=== PATIENT | female | born 1975 | race Native Hawaiian/Other Pacific Islander ===

== ENCOUNTER 2017-01-17 09:51 | Emergency (ER) | payer OTHER ==
[~2017-01-17] VITALS: Ht 162.6 cm; Wt 87.0 kg
[2017-01-17 09:55] VITALS: BP 126/82; PULSE 104; RESP 20; TEMP 98.3; O2SAT 98
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
[2017-01-17] MEDS ORDERED: IBUPROFEN 800 MG TAB PO ONE (11:30)
[2017-01-17] MEDS ORDERED: ROBA500T PO (12:00)
[2017-01-17] MEDS ORDERED: IBUP800T23 PO (12:00)
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
== END 2017-01-17 12:37 | disposition home or self-care (01) ==
LOC: NEPB 09:51
DX: S50.311A Abrasion of right elbow, initial encounter (principal); S00.211A Abrasion of right eyelid and periocular area, initial encounter; R42 Dizziness and giddiness; Z87.09 Personal history of other diseases of the respiratory system; Z86.59 Personal history of other mental and behavioral disorders; Z86.79 Personal history of other diseases of the circulatory system; V89.2XXA Person injured in unspecified motor-vehicle accident, traffic, initial encounter
CPT/HCPCS: 70450; 70486

== ENCOUNTER 2017-12-29 15:32 | Emergency (ER) | payer OTHER ==
[~2017-12-29] VITALS: Ht 162.6 cm; Wt 85.0 kg
[~2017-12-29 15:32] MED LIST: IBUP1TAB7 PO; ROBA500T PO
[2017-12-29 15:35] VITALS: BP 118/78; PULSE 90; RESP 17; TEMP 98.8; O2SAT 100
[2017-12-29] MEDS ORDERED: SODIUM CHLOR 0.9% 1000 ML INJ 1,000 ML IV SCH (17:33)
--- NOTE | 2017-12-29 17:37 | PD ---
HPI Chief Complaint: Dizziness Time Seen by Provider: 17:27 Travel History International Travel<30 days: No Contact w/Intl Traveler<30days: No Traveled to known affect area: No History of Present Illness HPI 42-year-old female here for evaluation of flulike symptoms, dizziness, nausea, and vomiting. The patient reports cough, generalized malaise, body aches, fevers, flulike illness for about a week. Today after eating breakfast she felt dizzy and became nauseous. She forced herself to vomit. She complains that she feels as though her head is heavy. No abdominal pain. She did have urinary symptoms earlier this week with dysuria, however she states this has resolved. PFSH Past Medical History Asthma: Yes Anxiety: Yes Heart Rhythm Problems: Yes (irreg heartbeat) Cardiovascular Problems: Yes (IRREGULAR HEARBEAT) Diminished Hearing: No ?: Not LMP: "2 WEEKS AGO" : 3 Para: 3 Social History Alcohol Use: No Tobacco Use: No Substance Use: No Allergies-Medications (Allergen,Severity, Reaction): Coded Allergies: No Known Allergies (Verified Adverse Reaction, Unknown, 12/29/17) Reported Meds & Prescriptions Reported Meds & Active Scripts Active Ibuprofen 800 Mg Tab 800 Mg PO Q6HR PRN Robaxin (Methocarbamol) 500 Mg Tab 500 Mg PO QID PRN Review of Systems Except as stated in HPI: all other systems reviewed are Neg Physical Exam Narrative GENERAL: Well-developed, well-nourished, comfortable, no apparent distress. SKIN: Focused skin assessment warm/dry. No pallor. HEAD: Atraumatic. Normocephalic. EYES: Pupils equal, round, 3 mm, reactive to light. No scleral icterus. No injection or drainage. ENT: No nasal bleeding or discharge. Mucous membranes pink and moist. Bilateral tympanic members and external auditory canals are normal. NECK: Trachea midline. No JVD. CARDIOVASCULAR: Regular rate and rhythm. RESPIRATORY: No accessory muscle use. Clear to auscultation. Breath sounds equal bilaterally. GASTROINTESTINAL: Abdomen soft, non-tender, nondistended. MUSCULOSKELETAL: No obvious deformities. No clubbing. No cyanosis. No edema. NEUROLOGICAL: Awake and alert. No obvious cranial nerve deficits. Motor grossly within normal limits. Normal speech. PSYCHIATRIC: Appropriate mood and affect; insight and judgment normal. Data Data Last Documented VS Vital Signs Date Time Temp Pulse Resp B/P (MAP) Pulse Ox O2 Delivery O2 Flow Rate FiO2 12/29/17 18:07 98.6 92 20 117/75 (89) 97 Room Air Orders Orders Complete Blood Count With Diff (12/29/17 17:33) Comprehensive Metabolic Panel (12/29/17 17:33) Prothrombin Time / Inr (Pt) (12/29/17 17:33) Act Partial Throm Time (Ptt) (12/29/17 17:33) Urinalysis - C+S If Indicated (12/29/17 17:33) Iv Access Insert/Monitor (12/29/17 17:33) Ecg Monitoring (12/29/17 17:33) Oximetry (12/29/17 17:33) Sodium Chlor 0.9% 1000 Ml Inj (Ns 1000 M (12/29/17 17:33) Sodium Chloride 0.9% Flush (Ns Flush) (12/29/17 17:45) Ed Urine Pregnancytest Poc (12/29/17 17:33) Influenzae A/B Antigen (12/29/17 17:33) Chest, Single Ap (12/29/17 ) Ct Brain W/O Iv Contrast(Rout) (12/29/17 ) Metoclopramide Inj (Reglan Inj) (12/29/17 17:45) Meclizine (Antivert) (12/29/17 19:30) Amoxicil-Clavulanate (Augmentin) (12/29/17 19:30) Labs Laboratory Tests Test 12/29/17 17:50 12/29/17 18:05 Urine Color YELLOW Urine Turbidity CLEAR Urine pH 7.0 Urine Specific [place] 1.026 Urine Protein 30 mg/dL Urine Glucose (UA) NEG mg/dL Urine Ketones 10 mg/dL Urine Occult Blood NEG Urine Nitrite NEG Urine Bilirubin NEG Urine Urobilinogen LESS THAN 2.0 MG/DL Urine Leukocyte Esterase NEG Urine RBC 2 /hpf Urine WBC 1 /hpf Urine Squamous Epithelial Cells 3 /hpf Urine Mucus FEW /lpf Microscopic Urinalysis Comment CULT NOT INDICATED White Blood Count 4.2 TH/MM3 Red Blood Count 4.70 MIL/MM3 Hemoglobin 13.7 GM/DL Hematocrit 40.3 % Mean Corpuscular Volume 85.7 FL Mean Corpuscular Hemoglobin 29.1 PG Mean Corpuscular Hemoglobin Concent 34.0 % Red Cell Distribution Width 13.2 % Platelet Count 201 TH/MM3 Mean Platelet Volume 8.7 FL Neutrophils (%) (Auto) 54.6 % Lymphocytes (%) (Auto) 37.9 % Monocytes (%) (Auto) 6.0 % Eosinophils (%) (Auto) 1.1 % Basophils (%) (Auto) 0.4 % Neutrophils # (Auto) 2.3 TH/MM3 Lymphocytes # (Auto) 1.6 TH/MM3 Monocytes # (Auto) 0.3 TH/MM3 Eosinophils # (Auto) 0.0 TH/MM3 Basophils # (Auto) 0.0 TH/MM3 CBC Comment DIFF FINAL Differential Comment Prothrombin Time 10.0 SEC Prothromb Time International Ratio 1.0 RATIO Activated Partial Thromboplast Time 26.8 SEC Blood Urea Nitrogen 17 MG/DL Creatinine 0.68 MG/DL Random Glucose 116 MG/DL Total Protein 8.3 GM/DL Albumin 3.9 GM/DL Calcium Level 9.3 MG/DL Alkaline Phosphatase 57 U/L Aspartate Amino Transf (AST/SGOT) 17 U/L Alanine Aminotransferase (ALT/SGPT) 24 U/L Total Bilirubin 0.6 MG/DL Sodium Level 136 MEQ/L Potassium Level 3.9 MEQ/L Chloride Level 102 MEQ/L Carbon Dioxide Level 28.6 MEQ/L Anion Gap 5 MEQ/L Estimat Glomerular Filtration Rate 94 ML/MIN MDM Medical Decision Making Medical Screen Exam Complete: Yes Emergency Medical Condition: Yes Differential Diagnosis Influenza, viral illness, URI, sinusitis, intracranial abnormality, vertigo, metabolic abnormality, anemia, UTI Narrative Course Vital signs are within normal limits. CBC is unremarkable. CMP is unremarkable. UA is not suggestive of UTI. Urine is negative. Influenza is negative. Chest x-ray: No acute disease. CT head: No acute intracranial abnormality. Right paranasal sinusitis. Patient was made aware of all findings. She was given a liter normal saline IV and IV Reglan and feels improved. She still feels slightly dizzy. She will be given a dose of meclizine and started on Augmentin for sinusitis. She was advised to follow-up with her primary care physician this week. She was informed on when to return to the emergency department. She verbalizes understanding and agreement with plan. Diagnosis Primary Impression: Sinusitis Qualified Codes: J01.90 - Acute sinusitis, unspecified Additional Impression: Dizziness Referrals: Primary Care Physician 3 days Additional Instructions: Follow-up with your primary care physician this week. Take medications as prescribed. Stay hydrated with plenty of fluids. Return to the emergency department for worsening symptoms or any other concerns. Scripts Amoxicillin-Clavulanate (Augmentin) 875-125 Mg Tab 1 TAB PO BID for Infection for 7 Days, #14 TAB 0 Refills Prov: Sae Harley MD 12/29/17 Meclizine (Meclizine) 25 Mg Tab 25 MG PO TID Y for VERTIGO, #15 TAB 0 Refills Prov: Sae Harley MD 12/29/17 Disposition: 01 DISCHARGE HOME Condition: Stable Sae Harley MD Dec 29, 2017 17:37
[2017-12-29] MEDS ORDERED: METOCLOPRAMIDE HCL 10 MG/2 ML VIAL IV PUSH ONE (17:45)
[2017-12-29] MEDS ORDERED: SODIUM CHLORIDE 0.9% FLUSH 10 ML FLUSH IV FLUSH PRN (17:45)
[2017-12-29 18:07] VITALS: BP 117/75; PULSE 92; RESP 20; TEMP 98.6; O2SAT 97
--- NOTE | 2017-12-29 18:10 | RADRPT ---
EXAM DATE/TIME: 12/29/2017 17:43 [facility] COMPARISON: No previous studies available for comparison. INDICATIONS : Short of breath. MEDICAL HISTORY : None. SURGICAL HISTORY : None. ENCOUNTER: Initial ACUITY: 1 day PAIN SCORE: 0/10 LOCATION: Bilateral chest FINDINGS: Single AP view of the chest. Low lung volumes. The lungs are clear. Cardiomediastinal silhouette with in normal limits. No evidence of pleural effusion or pneumothorax. CONCLUSION: No acute cardiopulmonary disease identified. Aris Rebolledo MD on December 29, 2017 at 18:07 Board Certified Radiologist. This report was verified electronically.
[2017-12-29 18:26] LABS: BILIRUBIN, URINE NEG (NEG); BLOOD, URINE NEG (NEG); GLUCOSE,URINE NEG (NEG); KETONE, URINE 10 mg/dL (NEG); MUCUS URINE FEW /lpf (OCC); NITRITE,URINE NEG (NEG); SQUAMOUS EPITHELIAL CELL URINE 3 /hpf (0-5); URINE COLOR YELLOW (YELLW/STRAW); URINE LEUKOCYTE ESTERASE NEG (NEG)
[2017-12-29 18:41] LABS: AUTOMATED NEUTROPHIL # 2.3 TH/MM3 (1.8-7.7); BASOPHIL % 0.4 % (0.0-2.0); EOSINOPHIL % 1.1 % (0.0-4.0); HEMATOCRIT 40.3 % (35.0-46.0); HEMOGLOBIN 13.7 GM/DL (11.6-15.3); LYMPH % 37.9 % (9.0-44.0); LYMPHOCYTE # 1.6 TH/MM3 (1.0-4.8); MEAN CELL VOLUME 85.7 FL (80.0-100.0); MEAN CORPUSCULAR HEMOGLOBIN 29.1 PG (27.0-34.0); MEAN PLATELET VOLUME 8.7 FL (7.0-11.0); MONOCYTE # 0.3 TH/MM3 (0-0.9); NEUT % 54.6 % (16.0-70.0); PLATELET COUNT 201 TH/MM3 (150-450); RED CELL DISTRIBUTION WIDTH 13.2 % (11.6-17.2); WHITE BLOOD COUNT 4.2 TH/MM3 (4.0-11.0)
[2017-12-29 18:46] LABS: ALBUMIN 3.9 GM/DL (3.4-5.0); AST (GOT) 17 U/L (15-37); BICARBONATE 28.6 MEQ/L (21.0-32.0); BLOOD UREA NITROGEN 17 MG/DL (7-18); CALCIUM 9.3 MG/DL (8.5-10.1); CHLORIDE 102 MEQ/L (98-107); CREATININE 0.68 MG/DL (0.50-1.00); GLOMERULAR FILTRATION RATE 94 ML/MIN (>89); GLUCOSE,RANDOM 116 MG/DL (74-106); SODIUM (NA) 136 MEQ/L (136-145)
[2017-12-29 18:47] LABS: ALT (GPT) 24 U/L (10-53)
[2017-12-29 18:49] LABS: ALKALINE PHOSPHATASE 57 U/L (45-117); TOTAL BILIRUBIN ADULT 0.6 MG/DL (0.2-1.0); TOTAL PROTEIN 8.3 GM/DL (6.4-8.2)
--- NOTE | 2017-12-29 19:12 | RADRPT ---
EXAM DATE/TIME: 12/29/2017 18:50 [facility] COMPARISON: CT FACIAL BONES W/O CONTRAST, January 17, 2017, 11:54. CT BRAIN W/O CONTRAST, January 17, 2017, 11 :54. INDICATIONS : Dizziness today. RADIATION DOSE: 56.35 CTDIvol (mGy) MEDICAL HISTORY : Cardiovascular disease. SURGICAL HISTORY : None. ENCOUNTER: Initial ACUITY: 1 day PAIN SCALE: 0/10 LOCATION: Bilateral head TECHNIQUE: Multiple contiguous axial images were obtained of the head. Using automated exposure control and adj ustment of the mA and/or kV according to patient size, radiation dose was kept as low as reasonably a chievable to obtain optimal diagnostic quality images. DICOM format image data is available electro nically for review and comparison. FINDINGS: CEREBRUM: The ventricles are normal for age. No evidence of midline shift, mass lesion, hemorrhage or acute in farction. No extra-axial fluid collections are seen. POSTERIOR FOSSA: The cerebellum and brainstem are intact. The 4th ventricle is midline. The cerebellopontine angle i s unremarkable. EXTRACRANIAL: Visualized right maxillary and ethmoid air cells are almost completely opacified. SKULL: The calvaria is intact. No evidence of skull fracture. CONCLUSION: No acute intracranial abnormality. Right paranasal sinusitis. Kt Bustillos MD on December 29, 2017 at 19:09 Board Certified Radiologist. This report was verified electronically.
[2017-12-29] MEDS ORDERED: MECL-62 PO (19:27)
[2017-12-29] MEDS ORDERED: AUGM875T3 PO (19:27)
[2017-12-29] MEDS ORDERED: MECLIZINE HCL 25 MG TAB PO ONE (19:30)
[2017-12-29] MEDS ORDERED: AMOXICILLIN/CLAVULANATE K 875 MG TAB PO ONE (19:30)
== END 2017-12-29 19:44 | disposition home or self-care (01) ==
LOC: NEPD 15:32
DX: J01.90 Acute sinusitis, unspecified (principal); R42 Dizziness and giddiness; R11.2 Nausea with vomiting, unspecified; R06.02 Shortness of breath
CPT/HCPCS: 70450; 71045; 80053; 81001; 84703; 85025; 85610; 85730; 87804; 96361; 96374; 99285; J2765; J7030